=== PATIENT | female | born 1985 | race American Indian/Alaskan Native ===

== ENCOUNTER 2017-07-13 07:16 | Emergency (ER) | payer OTHER ==
[2017-07-13 07:34] VITALS: RESP 16
--- NOTE | 2017-07-13 08:15 | ED ---
General Adult HPI - General Chief complaint: ENT Stated complaint: Sore Throat Time Seen by Provider: 07/13/17 08:09 Source: patient, RN notes reviewed Mode of arrival: ambulatory Limitations: no limitations - History of Present Illness Initial comments: Patient is a 32-year-old female presented to the emergency room today with a chief complaint of a sore throat over the last 3 days. She doesn't that hurts when she swallows. States she's not had much cough. Doesn't that she's noticed some white spots in the back of the throat. Patient states she is worried that she may have a strep throat. She states that she's had some chills no recorded temperatures. Denies any nausea vomiting. Denies any chest pain or abdominal pain. Denies any headache, neck pain. - Related Data Home Medications Medication Instructions Recorded Confirmed Acetaminophen Tab [Tylenol Tab] 650 mg PO Q4H PRN 03/22/17 07/13/17 Previous Rx's Medication Instructions Recorded Azithromycin [Zithromax Z-pack] 0 mg PO DIRECTED #6 tab 07/13/17 Allergies Allergy/AdvReac Type Severity Reaction Status Date / Time amoxicillin Allergy Rash/Hives Verified 07/13/17 07:34 ciprofloxacin [From Cipro] AdvReac Nausea & Verified 07/13/17 07:34 Vomiting ciprofloxacin HCl AdvReac Nausea & Verified 07/13/17 07:34 [From Cipro] Vomiting Review of Systems ROS Statement: Those systems with pertinent positive or pertinent negative responses have been documented in the HPI. ROS Other: All systems not noted in ROS Statement are negative. Past Medical History Additional Past Medical History / Comment(s): scoliosis History of Any Multi-Drug Resistant Organisms: None Reported Past Surgical History: No Surgical Hx Reported Past Psychological History: No Psychological Hx Reported Smoking Status: Never smoker Past Alcohol Use History: Occasional Past Drug Use History: None Reported General Exam - General Exam Comments Initial Comments: General: The patient is awake and alert, in no distress, and does not appear acutely ill. Eye: Pupils are equal, round and reactive to light, extra-ocular movements are intact. No nystagmus. There is normal conjunctiva bilaterally. No signs of icterus. Ears, nose, mouth and throat: There are moist mucous membranes and no oral lesions. Uvula midline. Patient tolerating oral secretions without difficulty. Patient does have exudate seen on the left side with increased erythema. Cervical anterior lymphadenopathy on the left. Neck: The neck is supple, there is no tenderness or JVD. Cardiovascular: There is a regular rate and rhythm. No murmur, rub or gallop is appreciated. Respiratory: Lungs are clear to auscultation, respirations are non-labored, breath sounds are equal. No wheezes, stridor, rales, or rhonchi. Musculoskeletal: Normal ROM, no tenderness. Strength 5/5. Sensation intact. Pulses equal bilaterally 2+. Neurological: A&O x 3. CN II-XII intact, There are no obvious motor or sensory deficits. Coordination appears grossly intact. Speech is normal. Skin: Skin is warm and dry and no rashes or lesions are noted. Psychiatric: Cooperative, appropriate mood & affect, normal judgment. Limitations: no limitations Course Vital Signs 07/13/17 07:33 Temperature 99.1 F Pulse Rate 108 H Respiratory 16 Rate Blood Pressure 128/82 O2 Sat by Pulse 100 Oximetry Medical Decision Making - Medical Decision Making Patient examined here the emergency room for sore throat. Patient does admit that she's felt feverish with hot and cold no recorded temperature. She does have tonsillar exudate on the left side. Uvula is midline. No difficulty swallowing. She does have anterior cervical lymphadenopathy on the left. No coughing. By centor criteria patient does meet for strep throat will be treated with antibiotics of azithromycin due to amoxicillin ALLERGY. - Lab Data Lab Results 07/13/17 Range/Units 07:38 Group A Strep Rapid Negative (Negative) Disposition Clinical Impression: Strep throat Disposition: HOME SELF-CARE Condition: Good Instructions: Strep Throat (ED) Additional Instructions: Please use medication as discussed. Please follow-up with family doctor in the next 2 days of symptoms have not improved. Please return to emergency room if the symptoms increase or worsen or for any other concerns. Prescriptions: Azithromycin [Zithromax Z-pack] 0 mg PO DIRECTED #6 tab Is patient prescribed a controlled substance at d/c from ED?: No Referrals: Corey Urbina MD [Primary Care Provider] - 1-2 days Time of Disposition: 08:17
[2017-07-13 08:56] VITALS: BP 124/70; PULSE 78; TEMP 97.8
== END 2017-07-13 08:55 | disposition home or self-care (01) ==
LOC: EC 07:16
DX: J02.0 Streptococcal pharyngitis (principal); R59.0 Localized enlarged lymph nodes; Z88.0 Allergy status to penicillin; Z88.1 Allergy status to other antibiotic agents
CPT/HCPCS: 87081; 87430; 99283

== ENCOUNTER 2017-08-18 09:07 | Emergency (ER) | payer OTHER ==
[2017-08-18 09:17] VITALS: BP 128/85; PULSE 87; RESP 18; TEMP 98.2
[2017-08-18] MEDS ORDERED: DIPH,PERTUS(ACELL)TETVAC-LF 0.5 ML VIAL IM ONE (09:30)
[2017-08-18] MEDS ORDERED: BACITRACIN OINT 1 EACH PACKET TOPICAL ONE (09:33)
--- NOTE | 2017-08-18 09:47 | ED ---
Animal Bite HPI - General Chief Complaint: Animal Bite Stated Complaint: Dog bite Lt buttox Time Seen by Provider: 08/18/17 09:21 Source: patient Mode of arrival: ambulatory Limitations: no limitations - History of Present Illness Initial Comments: This is a 32yo female with no PMH and antibiotic allergy to both amoxicillin and ciprofloxacin who presents today for animal bite 5 days ago. Pt states that she was over at her sisters house who owns a pitbull that is known to not be friendly. Pt states that she was in the same room as the dog and when she went to go turn away from him as he was beginnng to act aggressive he bite her left butt cheek. Pt states that there was a small puncture to the left buttock and redness. Pt did not seek medical attention. Pt sister had owned the dog since it was a puppy however pt is not sure if he was vaccinated. It is an indoor dog and was not foaming at the mouth. The patient states she was sore but then noticed some redness around the bite mel and thought she should come in after reading online that dog's have dirty mouths and their bites often get infected. Pt denies warmth, drainage, fever, chills, headache or any other associated symptoms. Pt last tetanus was 2006, due for tetanus. - Related Data Home Medications Medication Instructions Recorded Confirmed Acetaminophen Tab [Tylenol Tab] 1,000 mg PO Q6HR PRN 08/18/17 08/18/17 Previous Rx's Medication Instructions Recorded Doxycycline [Vibramycin] 100 mg PO Q12HR 5 Days #10 capsule 08/18/17 Allergies Allergy/AdvReac Type Severity Reaction Status Date / Time amoxicillin Allergy Rash/Hives Verified 08/18/17 10:03 ciprofloxacin [From Cipro] AdvReac Nausea & Verified 08/18/17 10:03 Vomiting ciprofloxacin HCl AdvReac Nausea & Verified 08/18/17 10:03 [From Cipro] Vomiting Review of Systems ROS Statement: Those systems with pertinent positive or pertinent negative responses have been documented in the HPI. ROS Other: All systems not noted in ROS Statement are negative. Constitutional: Denies: fever, chills Eyes: Denies: vision change ENT: Denies: throat pain Respiratory: Denies: dyspnea Cardiovascular: Denies: chest pain Gastrointestinal: Denies: abdominal pain, nausea, vomiting, diarrhea, constipation Genitourinary: Denies: urgency, dysuria Skin: Reports: as per HPI Neurological: Denies: headache Past Medical History Additional Past Medical History / Comment(s): scoliosis History of Any Multi-Drug Resistant Organisms: None Reported Past Surgical History: No Surgical Hx Reported Past Psychological History: No Psychological Hx Reported Smoking Status: Never smoker Past Alcohol Use History: Occasional Past Drug Use History: None Reported General Exam - General Exam Comments Initial Comments: General: The patient is awake and alert, in no distress, and does not appear acutely ill. Eye: Pupils are equal, round and reactive to light, extra-ocular movements are intact. No nystagmus. There is normal conjunctiva bilaterally. No signs of icterus. Ears, nose, mouth and throat: There are moist mucous membranes and no oral lesions. Neck: The neck is supple, there is no tenderness or JVD. Cardiovascular: There is a regular rate and rhythm. No murmur, rub or gallop is appreciated. Respiratory: Lungs are clear to auscultation, respirations are non-labored, breath sounds are equal. No wheezes, stridor, rales, or rhonchi. Gastrointestinal: [Soft, non-distended, non-tender abdomen without masses or organomegaly noted. There is no rebound or guarding present. No CVA tenderness. Bowel sounds are unremarkable.] Musculoskeletal: Normal ROM, no tenderness. Strength 5/5. Sensation intact. Pulses equal bilaterally 2+. Neurological: A&O x 3. CN II-XII intact, There are no obvious motor or sensory deficits. Coordination appears grossly intact. Speech is normal. Skin: Skin is warm and dry. There is a 1cm in length superficial lesion to the left buttock, it is less than 1/4cm in depth-no active bleeding or drainage. There is an area of ecchymosis surrounding the lesion circumferentially about 8 cm in diameter. Very mild erythema directly surrounding the lesion. Mild pain to palpation. Psychiatric: Cooperative, appropriate mood & affect, normal judgment. Limitations: no limitations Course Vital Signs 08/18/17 09:13 Temperature 98.2 F Pulse Rate 87 Respiratory 18 Rate Blood Pressure 128/85 O2 Sat by Pulse 97 Oximetry Medical Decision Making - Medical Decision Making This is a 32yo female with no PMH and antibiotic allergy to both amoxicillin and ciprofloxacin who presents today for animal bite 5 days ago. Pt states that she was over at her sisters house who owns a pitbull that is known to not be friendly. Pt states that she was in the same room as the dog and when she went to go turn away from him as he was beginnng to act aggressive he bite her left butt cheek. Pt states that there was a small puncture to the left buttock and redness. Pt did not seek medical attention. Pt sister had owned the dog since it was a puppy however pt is not sure if he was vaccinated. It is an indoor dog and was not foaming at the mouth. The patient states she was sore but then noticed some redness around the bite mel and thought she should come in after reading online that dog's have dirty mouths and their bites often get infected. Pt denies warmth, drainage, fever, chills, headache or any other associated symptoms. Pt last tetanus was 2006, due for tetanus. Upon physical exam there 1 shallow puncture wound, upon probing it is superficial less and 1/4cm deep. There are no palpable foreign body present. No signs of active bleeding or drainage. There is very mild erythema surrounding the puncture but more consistent with local inflammation rather than a cellulitis. There is a large area of ecchymosis surrounding the wound. A urine was obtained that returned negative. Pt received a TdaP vaccination as hers was overdue & the wound was cleansed with normal saline before topical bacitracin was applied to the puncture. Pt was educated on wound care, signs of infection and rabies ( althought the likelihood is extremely low). Pt was discharged with a prescription of Doxycycline 100mg q12h x5 days. And instructed to return to the emergency department if her symptoms worsen and to follow-up with PCP in 1-2 days. Pt agreed with plan and this was discussed with Dr. Blas south agrred. Pt discharged in stable condition. - Lab Data Lab Results 08/18/17 Range/Units 10:00 Urine HCG, Qual Not Detected (Not Detectd) Disposition Clinical Impression: Dog bite Disposition: HOME SELF-CARE Condition: Good Instructions: Animal Bite (ED) Additional Instructions: Please use medication as discussed. Please follow-up with family doctor in the next 2 days of symptoms have not improved. Please return to emergency room if the symptoms increase or worsen or for any other concerns. Prescriptions: Doxycycline [Vibramycin] 100 mg PO Q12HR 5 Days #10 capsule Is patient prescribed a controlled substance at d/c from ED?: No Referrals: Corey Urbina MD [Primary Care Provider] - 1-2 days Time of Disposition: 10:46
== END 2017-08-18 11:02 | disposition home or self-care (01) ==
LOC: EC 09:07
DX: S30.870A Other superficial bite of lower back and pelvis, initial encounter (principal); Z88.0 Allergy status to penicillin; Z88.1 Allergy status to other antibiotic agents; Z23 Encounter for immunization; W54.0XXA Bitten by dog, initial encounter; Y92.009 Unspecified place in unspecified non-institutional (private) residence as the place of occurrence of the external cause
CPT/HCPCS: 81025; 90471; 90715; 99283

== ENCOUNTER → 2022-06-12 | Day surgery (SDC) | payer OTHER ==
[2022-06-10 11:07] VITALS: BMI 27.4
[~2022-06-12] MED LIST: LACTATED RINGERS 1,000 ML IV SCH; PROPOFOL 10 MG/ML 20 ML VIAL IV ONE
[2022-06-12 10:27] VITALS: RESP 16; TEMP 77.8
--- NOTE | 2022-06-12 12:05 | P.GSHP ---
History of Present Illness H&P Date: 06/12/22 Chief Complaint: Hemorrhoids, rectal pain and bleeding Is a 37-year-old female who's had complaints of anal pain bleeding and itching due to hemorrhoids. Patient presents today for colonoscopy. Past Medical History Additional Past Medical History / Comment(s): scoliosis History of Any Multi-Drug Resistant Organisms: None Reported Past Surgical History: No Surgical Hx Reported Additional Past Surgical History / Comment(s): bilateral foot surgery at 18 toes were lengthened per patient Past Anesthesia/Blood Transfusion Reactions: No Reported Reaction Smoking Status: Smoker, current status unknown Medications and Allergies Home Medications Medication Instructions Recorded Confirmed Type Vitamin D(Unknown Dose) 1 tab PO Q30D 06/10/22 06/12/22 History Allergies Allergy/AdvReac Type Severity Reaction Status Date / Time amoxicillin Allergy Rash/Hives Verified 06/10/22 10:51 ciprofloxacin [From Cipro] AdvReac Nausea & Verified 06/10/22 10:51 Vomiting ciprofloxacin HCl AdvReac Nausea & Verified 06/10/22 10:51 [From Cipro] Vomiting Surgical - Exam Vital Signs Temp Pulse Resp BP Pulse Ox 77.8 F L 73 16 134/78 98 06/12/22 10:26 06/12/22 10:26 06/12/22 10:26 06/12/22 10:26 06/12/22 10:26 - General well developed, well nourished, no distress - Eyes PERRL - ENT normal pinna - Neck no masses - Respiratory normal expansion - Cardiovascular Rhythm: regular - Abdomen Abdomen: soft, non tender Assessment and Plan Plan: Rectal bleeding. Hemorrhoids. Patient undergo colonoscopy.
[2022-06-12 12:22] VITALS: PULSE 84
[2022-06-12 12:23] VITALS: BP 130/83
--- NOTE | 2022-06-12 12:24 | P.OP ---
Date of Procedure: 06/12/22 Preoperative Diagnosis: Hemorrhoids Rectal bleeding Postoperative Diagnosis: Internal and external hemorrhoids Procedure(s) Performed: Colonoscopy Anesthesia: MAC Surgeon: Klaus Silveira Pathology: none sent Condition: stable Disposition: PACU Description of Procedure: The patient's placed on the endoscopy table in the lateral position. She received IV sedation. Digital rectal exam was performed. There were internal and external hemorrhoids noted. Possible colonoscope was then placed patient anus and passed throughout the entire colon. The ileocecal valve visualized. The cecum, ascending and transverse colon appeared normal. The descending and sigmoid colon appeared normal. Scope back the rectum and this appeared normal. Scope withdrawn for anus and there were internal and external hemorrhoids noted.. There is no evidence of any hemorrhoidal bleeding.
== END | disposition home or self-care (01) ==
LOC: ORWHC2ENDO 09:54
PROVIDERS: ATTEND Surgery
DX: K64.4 Residual hemorrhoidal skin tags (principal); K64.8 Other hemorrhoids; M41.9 Scoliosis, unspecified; F17.200 Nicotine dependence, unspecified, uncomplicated; Z98.890 Other specified postprocedural states; Z79.899 Other long term (current) drug therapy; Z88.0 Allergy status to penicillin; Z88.1 Allergy status to other antibiotic agents
CPT/HCPCS: 81025; 45378; J2704

== ENCOUNTER 2022-07-07 06:33 | Day surgery (SDC) | payer OTHER ==
[~2022-07-07 06:33] MED LIST changes: +ACETAMINOPHEN TAB 500 MG TAB PO PRN; +HEPARIN SODIUM,PORCINE/PF 5,000 UNIT/0.5 ML SYRINGE SQ PRN; -LACTATED RINGERS 1,000 ML IV SCH; -PROPOFOL 10 MG/ML 20 ML VIAL IV ONE; +Pre Op ABX Message 1 EACH MISC MISCELLANE ONE
[2022-07-07] MEDS ORDERED: ONDANSETRON 4 MG/2 ML VIAL IVP ONE (06:52)
[2022-07-07] MEDS ORDERED: droPERidol 5 MG/2 ML VIAL IVP ONE (06:52)
[2022-07-07] MEDS ORDERED: DEXAMETHASONE SOD PHOSPHATE 4 MG/ML 1 ML VIAL IV ONE (06:52)
[2022-07-07] MEDS ORDERED: HYDROmorphone 0.5 MG/0.5 ML SYRINGE IVP PRN (06:52)
[2022-07-07] MEDS ORDERED: LIDOCAINE 1% (10MG/ML) FOR IV START INTRADERMA PRN (06:52)
[2022-07-07 07:07] VITALS: TEMP 97.3
[2022-07-07] MEDS ORDERED: BUPIVACAINE (PF) 0.5% 30 ML VIAL SQ ONE ×3 (07:16→07:58)
[2022-07-07] MEDS: LACTATED RINGERS 1,000 ML IV SCH ×2 (07:23→07:28)
[2022-07-07] MEDS ORDERED: KETAMINE 10 MG/ML 20 ML VIAL ONE (07:36)
[2022-07-07] MEDS ORDERED: PROPOFOL 10 MG/ML 20 ML VIAL IV ONE (07:36)
[2022-07-07] MEDS ORDERED: fentaNYL (PF) 50 MCG/ML 2 ML AMP ONE (07:36)
[2022-07-07] MEDS ORDERED: KETOROLAC 15 MG/ML 1 ML VIAL ONE (07:36)
[2022-07-07] MEDS ORDERED: MIDAZOLAM 2 MG/2 ML VIAL ONE (07:36)
[2022-07-07] MEDS ORDERED: GELATIN SPONGE,ABSORB (LARGE) 1 EACH SPONGE TOPICAL ONE (07:39)
[2022-07-07] MEDS ORDERED: LIDOCAINE 2%-EPI 1:100,000 20 ML VIAL SQ ONE ×2 (07:58)
--- NOTE | 2022-07-07 08:22 | P.OP ---
Date of Procedure: 07/07/22 Preoperative Diagnosis: Internal and external hemorrhoids Postoperative Diagnosis: Internal and external hemorrhoids Procedure(s) Performed: Internal and external hemorrhoidectomy Anesthesia: MAC, local Surgeon: Klaus Silveira Estimated Blood Loss (ml): 5 Pathology: other (Internal and external hemorrhoids) Condition: stable Disposition: PACU Description of Procedure: The patient's placed on the endoscopy table on the operating table in the prone jackknife position. She received IV sedation. Her anus appropriately sterile fashion. An anal block was performed with 1% local Xylocaine. And then using the anal retractor the hemorrhoidal columns were visualized. The left lateral hemorrhoidal column was grasped. Allis test. Then using the Harmonic scissors the hemorrhoid was performed. Next the right anterior and right posterior hemorrhoidal columns were excised in identical fashion. The Bovie hemostasis. There is no bleeding seen. Gelfoam was placed anus. Patient top she will she was sent to recovery in stable condition.
[2022-07-07] MEDS ORDERED: diphenhydrAMINE 50 MG/ML 1 ML VIAL ONE (09:15)
[2022-07-07 09:43] VITALS: BP 138/81; PULSE 68; RESP 16
== END 2022-07-07 10:27 | disposition home or self-care (01) ==
LOC: OR 06:33
PROVIDERS: ATTEND Surgery
DX: K64.4 Residual hemorrhoidal skin tags (principal); K64.8 Other hemorrhoids; F12.90 Cannabis use, unspecified, uncomplicated; F17.200 Nicotine dependence, unspecified, uncomplicated; Z98.890 Other specified postprocedural states; Z88.0 Allergy status to penicillin; Z88.1 Allergy status to other antibiotic agents; Z79.899 Other long term (current) drug therapy
CPT/HCPCS: 81025; 88304; 46260; J2250; J1200; J1100; J2405; J3010; J1885; J2704; J1644